=== PATIENT | female | born 1975 | race Two or more races ===

== ENCOUNTER 2022-08-16 11:28 | Emergency (ER) | payer SELFPAY ==
[~2022-08-16] VITALS: Ht 162.6 cm; Wt 118.0 kg
[2022-08-16 13:30] VITALS: BP 118/67
== END 2022-08-16 14:30 | disposition home or self-care (01) ==
LOC: ER 11:28
DX: G62.9 Polyneuropathy, unspecified (principal)

== ENCOUNTER 2022-10-25 17:24 | Emergency (ER) | payer OTHER ==
[~2022-10-25] VITALS: Ht 162.6 cm; Wt 119.2 kg
[2022-10-25 19:44] VITALS: BP 106/64; PULSE 73; RESP 17; TEMP 98.9; O2SAT 98
== END 2022-10-25 19:46 | disposition home or self-care (01) ==
LOC: ER 17:24
DX: M54.59 Other low back pain (principal); M25.512 Pain in left shoulder
CPT/HCPCS: 72100; 73030